=== PATIENT | male | born 1950 | race Caucasian/White ===

== ENCOUNTER → 2016-09-22 | Outpatient (CLI) | payer OTHER ==
[~2016-09-22] MED LIST: ACYCLOVIR800 MG PO; ASPIRIN325 M2 PO; CIPRO500 MG PO; FENOFIBRATE130 M1 PO; FLOMAX0.4 MG PO; GLYBURIDE5 MG PO; HYDROCODONE BIT1 T11 PO; JANUMET 500 MG-1 TA1 PO; LISINOPRIL10 MG PO; LISINOPRIL20 MG PO; LOPID600 MG PO; LOPRESSOR25 MG PO; LOPRESSOR50 MG; METFORMIN850 MG PO; PLAVIX75 MG PO; SKELAXIN800 MG PO; SUPER EPA 1001000 MG PO; TRAMADOL HCL50 MG PO; TYLENOL W/CODEI1 TA7 PO; XANAX0.25 MG; XANAX0.5 MG PO; ZOCOR40 MG PO; [UNRECOGNIZED DRUG - OTHER]
--- NOTE | ~2016-09-22 | HM ---
[place], [place] HOLTER MONITOR REPORT NAME: DEREK ARMENDARIZ UNIT #: [id number] ROOM: DOCTOR: MEREDITH ARIZA MD BIRTHDATE: [birth year] DOS: A 24-HOUR HOLTER MONITOR Study was done from 09/22/2016 to 09/23/2016. REFERRED BY: Dr. Jennifer Buitrago. INDICATION: For evaluation of bradycardia. PROCEDURE: The patient was monitored for 24 hours. FINDINGS: Basic rhythm was normal sinus. Average heart rate was 61 with minimum heart rate of 43 and a maximum heart rate in sinus rhythm of 92 beats per minute. The patient did have rare PVCs. A 37-beat run of apparent wide complex tachycardia was recorded at 1:56 a.m. The heart rate during this run was 188 beats per minute. Evaluation of the strips available indicates that this was artifactual. No other runs of wide complex tachycardia were seen. The patient had frequent premature atrial contractions with a short run of SVT. The SVT occurred at 8:04 in the morning and lasted for 3 beats. No sustained SVT was seen. The longest R-R interval was 1.5 seconds. No prolonged pauses were seen. A diary was returned, but there were no entries suggesting that the patient had no symptoms during the monitored time frame. IMPRESSION: 1. Sinus rhythm with sinus bradycardia. 2. Possible wide complex tachycardia, which more likely represents artifact. 3. Three-beat run of supraventricular tachycardia recorded. 4. No symptoms are reported. I would suggest that the monitor be repeated in order to make sure that the patient truly is not having runs of ventricular tachycardia even though I believe that the episode recorded was artifactual. [place], [place] HOLTER MONITOR REPORT NAME: DEREK ARMENDARIZ UNIT #: [id number] ROOM: DOCTOR: MEREDITH ARIZA MD BIRTHDATE: [birth year] MEREDITH ARIZA MD CM:HOLTER:HOLTER MONITOR REPORT [id number] MEREDITH ARIZA MD
== END | disposition home or self-care (01) ==
LOC: CARD 07:58
DX: I25.810 Atherosclerosis of coronary artery bypass graft(s) without angina pectoris (principal); R00.1 Bradycardia, unspecified